=== PATIENT | female | born 1955 | race Caucasian/White ===

== ENCOUNTER 2023-03-13 14:32 | Emergency (ER) | payer MEDICARE, OTHER ==
[2023-03-13] MEDS ORDERED: Lidocaine 1% 30 ML SDV INJECT ONE (15:16)
== END 2023-03-13 16:15 | disposition home or self-care (01) ==
LOC: VM.ED 14:32
DX: S91.011A Laceration without foreign body, right ankle, initial encounter (principal); Z88.1 Allergy status to other antibiotic agents; W26.8XXA Contact with other sharp object(s), not elsewhere classified, initial encounter
CPT/HCPCS: 12002; 99282; 99283; J3490